=== PATIENT | female | born 1990 | race Hispanic/Latino ===

== ENCOUNTER 2023-03-17 16:48 | Inpatient (IN) | payer MEDICAID, OTHER ==
[~2023-03-17 16:48] MED LIST: Bupivacaine 0.25% HCL 30 ML VIAL ONE
[2023-03-17 19:51] VITALS: BMI 33.6
[2023-03-17] MEDS ORDERED: Misoprostol 200 MCG TAB PR PRN (19:56)
[2023-03-17] MEDS ORDERED: Methylergonovine 0.2 MG/ML VIAL IM PRN (19:56)
[2023-03-17] MEDS ORDERED: Acetaminophen 500 MG TAB PO PRN (19:56)
[2023-03-17] MEDS ORDERED: HYDROcodone/Acetaminophen 5/325 mg Tablet PO PRN (19:56)
[2023-03-17] MEDS ORDERED: Promethazine HCl 25 MG/ML VIAL IM PRN (19:56)
[2023-03-17] MEDS ORDERED: Tranexamic Acid 1,000 MG/10 ML VIAL IVP PRN (19:56)
[2023-03-17] MEDS ORDERED: Carboprost 250 MCG/ML AMP IM PRN (19:56)
[2023-03-17] MEDS ORDERED: Diphenoxylate HCl/Atropine Tablet PO PRN (19:56)
[2023-03-17] MEDS ORDERED: Ibuprofen 800 MG TAB PO PRN (19:56)
[2023-03-17] MEDS ORDERED: Ondansetron PF 4 MG/2 ML Vial IVP PRN (19:56)
[2023-03-17] MEDS ORDERED: hydrALAZINE 20 MG/ML VIAL SLOW IVP PRN (19:56)
[2023-03-17] MEDS ORDERED: Lidocaine 1% (PF) 30 ML VIAL SC PRN (19:56)
[2023-03-17] MEDS ORDERED: fentaNYL 50 mcg/mL 1 mL Vial SLOW IVP PRN (19:56)
[2023-03-17 20:09] LABS: Hemoglobin 11.7 g/dL (12.0-15.5); Mean Corpuscular Volume 87.9 fl (81.6-98.3); Mean Platelet Volume 12.7 fl (7.4-10.4); Platelet Count 219 10x3/uL (150-450); RBC Distribution Width 14.6 % (11.5-14.5); Red Blood Cell (RBC) Count 4.04 10x6/uL (3.90-5.03); White Blood Cell (WBC) Count 6.8 10x3/uL (3.5-10.5)
[2023-03-17 20:15] LABS: Glucose 104 mg/dL (70-105)
[2023-03-17] MEDS: Lactated Ringer's 1,000 ML IV SCH (20:30)
[2023-03-17] MEDS ORDERED: NS w/ Oxytocin 30 units 500 ML IV SCH ×3 (20:30)
[2023-03-17 20:39] LABS: Syphilis Antibody Nonreactive (Nonreactive); Syphilis Antibody Index 0.05 S/CO (<1.00 Non-Reactive)
[2023-03-17 20:40] LABS: HBSAg Index 0.18 S/CO (0-0.99); Hep B Surf Ag - L&D Non-Reactive S/CO (NonReactive)
[2023-03-17] MEDS: Misoprostol 100 MCG TAB VAG SCH (20:45)
[2023-03-18] MEDS: Misoprostol 100 MCG TAB VAG SCH ×2 (00:30→10:25)
[2023-03-18] MEDS: Lactated Ringer's 1,000 ML IV SCH (05:42)
[2023-03-18] MEDS ORDERED: fentaNYL/Ropivacaine Epidural 100 ML ONE (09:05)
[2023-03-18] MEDS: Ibuprofen 800 MG TAB PO SCH ×2 (10:58→21:11)
[2023-03-18] MEDS ORDERED: Milk Of Magnesia 30 ML UDCUP PO PRN (12:02)
[2023-03-18] MEDS ORDERED: Lanolin Ointment 7 GM TUBE TOP PRN (12:02)
[2023-03-18] MEDS ORDERED: diphenhydrAMINE 25 MG CAP PO PRN (12:02)
[2023-03-18] MEDS ORDERED: Promethazine HCl 25 MG/ML VIAL IM PRN (12:02)
[2023-03-18] MEDS ORDERED: HYDROcodone/Acetaminophen 5/325 mg Tablet PO PRN (12:02)
[2023-03-18] MEDS ORDERED: Bisacodyl 10 MG SUPP PR PRN (12:02)
[2023-03-18] MEDS ORDERED: Benzocaine-Menthol 82.5 ML CAN TOP PRN (12:02)
[2023-03-18] MEDS ORDERED: Ondansetron PF 4 MG/2 ML Vial IVP PRN (12:02)
[2023-03-18] MEDS ORDERED: Boostrix 0.5 ML (Tdap) VIAL (>/=7 yrs of age) IM ONE (12:02)
[2023-03-18] MEDS ORDERED: hydrALAZINE 20 MG/ML VIAL SLOW IVP PRN (12:02)
[2023-03-18] MEDS: Docusate 100 MG CAP PO SCH (21:11)
[2023-03-18] MEDS: Ferrous Sulfate 325 MG TAB PO SCH (21:44)
[2023-03-19] MEDS: Ibuprofen 800 MG TAB PO SCH ×3 (05:37→21:25)
[2023-03-19] MEDS: Prenatal Vitamin 1 TAB PO SCH (09:24)
[2023-03-19] MEDS: Docusate 100 MG CAP PO SCH ×2 (09:24→21:23)
[2023-03-19] MEDS: Ferrous Sulfate 325 MG TAB PO SCH ×2 (09:45→21:26)
[2023-03-20] MEDS: Ibuprofen 800 MG TAB PO SCH (06:02)
[2023-03-20] MEDS: Ferrous Sulfate 325 MG TAB PO SCH (07:10)
[2023-03-20 08:05] VITALS: BP 108/60; TEMP 98
[2023-03-20] MEDS: Docusate 100 MG CAP PO SCH (09:05)
[2023-03-20] MEDS: Prenatal Vitamin 1 TAB PO SCH (09:05)
== END 2023-03-20 13:10 | disposition home or self-care (01) | DRG 805 ==
LOC: CSHLD 18:28 → CSHPP 03-18 12:20
PROVIDERS: ADMIT Family Medicine; ATTEND Family Medicine
PROC: 10E0XZZ Delivery of Products of Conception, External Approach (ICD-10-PCS; principal; 2023-03-18)
PROC: 10907ZC Drainage of Amniotic Fluid, Therapeutic from Products of Conception, Via Natural or Artificial Opening (ICD-10-PCS; 2023-03-18)
PROC: 3E0P7VZ Introduction of Hormone into Female Reproductive, Via Natural or Artificial Opening (ICD-10-PCS; 2023-03-18)
DX: O26.62 Liver and biliary tract disorders in childbirth (principal); K83.1 Obstruction of bile duct; Z37.0 Single live birth; Z3A.37 37 weeks gestation of pregnancy; Z79.899 Other long term (current) drug therapy; O69.81X0 Labor and delivery complicated by cord around neck, without compression, not applicable or unspecified
CPT/HCPCS: 36415; 36416; 82947; 85027; 86780; 86850; 86900; 86901; 87340; J7120; S0020

== ENCOUNTER 2025-07-20 10:47 | Outpatient (CLI) | payer OTHER | END 2025-07-20 10:48 | disposition home or self-care (01) | LOC: CSHULT 10:47 | DX: Z33.1 Pregnant state, incidental (principal) | CPT/HCPCS: 76805 ==